=== PATIENT | female | born 1960 ===

== ENCOUNTER → 2024-07-15 | Outpatient (CLI) | payer OTHER ==
[2024-07-15 09:07] VITALS: BP 120/83; PULSE 96; RESP 16; TEMP 98
--- NOTE | 2024-07-15 09:57 | P.HPOB ---
History of Present Illness H&P Date: 07/15/24 Chief Complaint: The patient is here for her routine gynecologic exam and ma mmogram. This is a 63-year-old -0-0-1 with an LMP of 2011. The patient is here to establish with this office. It has been about 4 years since her last pelvic exam. Patient states she notices some vaginal fullness and feels swollen up when she is on her feet or after eating. She denies seeing anything protruding outside of the vaginal opening. She is otherwise without complaints and denies any postmenopausal bleeding. Review of Systems The patient's weight has been stable over the last year. She would like to lose weight. She denies respiratory, cardiac, or G.I. problems. 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 History of Any Multi-Drug Resistant Organisms: None Reported Additional Past Surgical History / Comment(s): SALPINGECTOMY FOR ECTOPIC PREG. Colonoscopy 2022(next after 7yr) Past Anesthesia/Blood Transfusion Reactions: Unable to Obtain Past Psychological History: Anxiety, Bipolar, Depression Smoking Status: Never smoker Past Alcohol Use History: None Reported Past Drug Use History: None Reported Additional History: She has been since 2015 and is not sexually active currently. 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 - Past Family History Mother Family Medical History: Cancer, Diabetes Mellitus, Liver Disease Additional Family Medical History / Comment(s): Fatty liver. Breast cancer. . Maternal and grandfather had diabetes. Father Family Medical History: Dementia, Diabetes Mellitus, Renal Disease Additional Family Medical History / Comment(s): . Paternal grandparents had diabetes Sister(s) Family Medical History: Cancer Additional Family Medical History / Comment(s): Breast cancer. Son(s) Additional Family Medical History / Comment(s): 2 sons from mucopolysaccharidosis. Medications and Allergies Home Medications Medication Instructions Recorded Confirmed Type Aspirin [[place] Aspirin EC] 81 mg PO DAILY 07/15/24 07/15/24 History Atorvastatin [Lipitor] 10 mg PO DAILY 07/15/24 07/15/24 History Cholecalciferol (Vitamin D3) 50 mcg PO DAILY 07/15/24 07/15/24 History [Vitamin D3 (50 Mcg = 2000 Iu)] Dulaglutide [Trulicity] 1 injection INJ WEEKLY 07/15/24 07/15/24 History Mv-Min/Folic/Vit K/Lut/Eoxh755 1 tab PO DAILY 07/15/24 07/15/24 History [Alive Women's 50 Plus Tablet] [place]-3/Dha/Epa/Fish Oil [Fish Oil 2,000 mg PO DAILY 07/15/24 07/15/24 History 1,000 mg Softgel] Pioglitazone [Actos] 15 mg PO DAILY 07/15/24 07/15/24 History Propranolol HCl 10 mg PO DIRECTED 07/15/24 07/15/24 History buPROPion XL [Wellbutrin XL] 300 mg PO DAILY 07/15/24 07/15/24 History busPIRone HCL 15 mg PO QID 07/15/24 07/15/24 History Allergies Allergy/AdvReac Type Severity Reaction Status Date / Time metformin Allergy Nausea & Unverified 07/15/24 08:53 Vomiting & Diarrhea Exam Vital Signs Temp Pulse Resp BP Pulse Ox 07/15/24 09:00 98 F 96 16 120/83 97 Intake and Output 07/14/24 07/15/24 07/15/24 22:59 06:59 14:59 Other: Weight 69.853 kg Height 5 feet 0 inches, weight 154 pounds, BMI 30.1. This is a well-developed well-nourished white female who is alert and oriented t imes 3 in no acute distress. HEENT: Within normal limits. NECK: Supple without mass or thyromegaly. CHEST AND LUNGS: Clear to auscultation. HEART: Regular rate and rhythm. BREASTS: Are without mass or discharge. AXILLARY EXAM: Negative for adenopathy. BACK: Negative for CVA tenderness. ABDOMEN: Soft, nontender, without palpable masses. PELVIC EXAM: Normal external genitalia with mild atrophy. Cervix and vagina appear normal with mild atrophy. The vaginal mucosa is without thickening or excoriation. There is no unusual discharge. There is a grade 2-3 cystocele and grade 2-3 uterine prolapse. There is a grade 2 rectocele. The uterus is midposition, nongravid size and nontender. There are no palpable adnexal masses or tenderness. RECTAL EXAM: Rectovaginal exam is negative for mass or tenderness and is negative for occult blood. EXTREMITIES: Nontender. IMPRESSION: 1. 63-year-old menopausal female with grade 2-3 cystocele, grade 2-3 uterine prolapse, and a grade 2 rectocele. This is intermittently symptomatic. PLAN: 1. Pap smear cotest was performed. 2. Self breast awareness was discussed with the patient. We have also discussed symptoms associated with inflammatory breast cancer. 3. Screening mammogram will be done today. 4. We have had a long discussion regarding vaginal prolapse. She would like a referral for possible surgical correction. We have discussed possible vaginal hysterectomy with anterior and posterior repairs. We have discussed possible risks including bleeding, infection, damage to surrounding structures as well as vaginal shortening. She will be referred to Dr. Elias for possible surgical correction. 5. Osteoporosis prevention was discussed. I have stressed the importance of adequate calcium, vitamin D and regular exercise. Recommended amounts of calcium and vitamin D were also discussed. Slip for a bone density test will be mailed to the patient's that she states she has never had this done before. 6. She was advised to return in one year for her annual well woman exam and as needed.
== END ==
LOC: WWCWWP 08:12
PROVIDERS: ATTEND Obstetrics & Gynecology
DX: Z01.419 Encounter for gynecological examination (general) (routine) without abnormal findings (principal); Z12.31 Encounter for screening mammogram for malignant neoplasm of breast; N81.3 Complete uterovaginal prolapse; Z88.8 Allergy status to other drugs, medicaments and biological substances
CPT/HCPCS: 77063; 77067

== ENCOUNTER 2025-02-28 14:32 | Emergency (ER) | payer OTHER ==
--- NOTE | 2025-02-28 15:36 | XR ---
EXAMINATION TYPE: XR ankle complete RT DATE OF EXAM: 02/28/2025 3:12 PM COMPARISON: None available. CLINICAL INDICATION: Female, 64 years old with history of Pain; PHH, pain TECHNIQUE: XR ankle complete RT; ankle is imaged in frontal, lateral and oblique projections. FINDINGS: There is no evidence of acute osseous pathology. No evidence of subluxation or dislocation. Kager's fat pad is intact. Metallic plate and fixation screws along the distal fibula. No periprosthetic luce ncy. Tibiotalar joint and talar dome are acutely unremarkable. Small enthesophyte along the plantar c alcaneal surface. IMPRESSION: No acute osseous abnormality. [facility], , 02/28/2025 3:34 PM
--- NOTE | 2025-02-28 16:16 | ED ---
Extremity Problem HPI - General Chief complaint: Extremity Problem,Nontraumatic Stated complaint: R Foot Issue Source: patient, RN notes reviewed, old records reviewed Mode of arrival: ambulatory Limitations: no limitations - History of Present Illness Initial comments: This is a 64-year-old female to the ER today. This patient presents today for evaluation in regards to right foot pain right foot swelling significant. History of right ankle injury no new or recurrent injuries. Swelling of the right leg painful when she walks worse when she walks and noted swelling today more swelling than normal around the ankle joint MD Complaint: extremity pain, extremity swelling, joint swelling (Right ankle), joint pain Location: right, lower extremity History of Same: Yes -: Yes myalgia, Yes arthralgia Radiation: proximal, distal Severity scale (1-10): 6 Quality: aching Consistency: constant Improves with: nothing Worsens with: weight bearing Associated Symptoms: denies other symptoms - Related Data Home Medications Medication Instructions Recorded Confirmed Aspirin [[place] Aspirin EC] 81 mg PO DAILY 07/15/24 07/15/24 Atorvastatin [Lipitor] 10 mg PO DAILY 07/15/24 07/15/24 Cholecalciferol (Vitamin D3) 50 mcg PO DAILY 07/15/24 07/15/24 [Vitamin D3 (50 Mcg = 2000 Iu)] Dulaglutide [Trulicity] 1 injection INJ WEEKLY 07/15/24 07/15/24 Mv-Min/Folic/Vit K/Lut/Ebtw999 1 tab PO DAILY 07/15/24 07/15/24 [Alive Women's 50 Plus Tablet] [place]-3/Dha/Epa/Fish Oil [Fish Oil 2,000 mg PO DAILY 07/15/24 07/15/24 1,000 mg Softgel] Pioglitazone [Actos] 15 mg PO DAILY 07/15/24 07/15/24 Propranolol HCl 10 mg PO DIRECTED 07/15/24 07/15/24 buPROPion XL [Wellbutrin XL] 300 mg PO DAILY 07/15/24 07/15/24 busPIRone HCL 15 mg PO QID 07/15/24 07/15/24 Allergies Allergy/AdvReac Type Severity Reaction Status Date / Time metformin Allergy Nausea & Unverified 02/28/25 14:48 Vomiting & Diarrhea Review of Systems ROS Statement: Those systems with pertinent positive or pertinent negative responses have been documented in the HPI. ROS Other: All systems not noted in ROS Statement are negative. Past Medical History Past Medical History: Diabetes Mellitus, Hyperlipidemia Additional Past Medical History / Comment(s): Type 2 diabetes. 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 History of Any Multi-Drug Resistant Organisms: None Reported Past Surgical History: Joint Replacement, Orthopedic Surgery Additional Past Surgical History / Comment(s): SALPINGECTOMY FOR ECTOPIC PREG. Colonoscopy 2022(next after 7yr) Past Anesthesia/Blood Transfusion Reactions: Unable to Obtain Past Psychological History: Anxiety, Bipolar, Depression Smoking Status: Never smoker Past Alcohol Use History: None Reported Past Drug Use History: None Reported - Past Family History Mother Family Medical History: Cancer, Diabetes Mellitus, Liver Disease Additional Family Medical History / Comment(s): Fatty liver. Breast cancer. . Maternal and grandfather had diabetes. Father Family Medical History: Dementia, Diabetes Mellitus, Renal Disease Additional Family Medical History / Comment(s): . Paternal grandparents had diabetes Sister(s) Family Medical History: Cancer Additional Family Medical History / Comment(s): Breast cancer. Son(s) Additional Family Medical History / Comment(s): 2 sons from mucopolysaccharidosis. General Exam Limitations: no limitations General appearance: alert, in no apparent distress Head exam: Present: atraumatic, normocephalic, normal inspection Eye exam: Present: normal appearance, PERRL, EOMI. Absent: scleral icterus, conjunctival injection, periorbital swelling ENT exam: Present: normal exam, mucous membranes moist Neck exam: Present: normal inspection. Absent: tenderness, meningismus, lymphadenopathy Respiratory exam: Present: normal lung sounds bilaterally. Absent: respiratory distress, wheezes, rales, rhonchi, stridor Cardiovascular Exam: Present: regular rate, normal rhythm, normal heart sounds. Absent: systolic murmur, diastolic murmur, rubs, gallop, clicks GI/Abdominal exam: Present: soft, normal bowel sounds. Absent: distended, tenderness, guarding, rebound, rigid Extremities exam: Present: normal inspection, full ROM, normal capillary refill. Absent: tenderness, pedal edema, joint swelling, calf tenderness Back exam: Present: normal inspection Neurological exam: Present: alert, oriented X3, CN II-XII intact Psychiatric exam: Present: normal affect, normal mood Skin exam: Present: warm, dry, intact, normal color. Absent: rash Course Vital Signs 02/28/25 14:45 Temperature 98.3 F Pulse Rate 88 Respiratory 20 Rate Blood Pressure 118/64 O2 Sat by Pulse 97 Oximetry - Reevaluation(s) Reevaluation #1: 02/28/25 17:39 Medical records reviewed Reevaluation #2: 02/28/25 17:39 Patient symptoms unchanged Reevaluation #3: 02/28/25 17:39 Patient informed of results and questions answered Reevaluation #4: Was pt. sent in by a medical professional or institution (, BRANDO, REACH TRUCK OPERATOR, urgent care, hospital, or snf...) When possible be specific @ -no Did you speak to anyone other than the patient for history (EMS, parent, family, police, friend...)? What history was obtained from this source @ -no Did you review nursing and triage notes (agree or disagree)? Why? @ -agree Are old charts reviewed (outside hosp., previous admission, EMS record, old EKG, old radiological studies, urgent care reports/EKG's, snf records)? Report findings @ -yes Differential Diagnosis (chest pain, altered mental status, abdominal pain women, abdominal pain men, vaginal bleeding, weakness, fever, dyspnea, syncope, headache, dizziness, GI bleed, back pain, seizure, CVA, palpatations, mental health, musculoskeletal)? @ -prior EKG interpreted by me (3pts min.). @ -yes X-rays interpreted by me (1pt min.). @ -yes negative for acute disease CT interpreted by me (1pt min.). @ -no U/S interpreted by me (1pt. min.). @ -no What testing was considered but not performed or refused? (CT, X-rays, U/S, labs)? Why? @ -none What meds were considered but not given or refused? Why? @ -none Did you discuss the management of the patient with other professionals (professionals i.e. BRANDO Mabry, REACH TRUCK OPERATOR, lab, RT, psych nurse, sexual assault social worker, stone engraver, teacher, deportation officer, bilingual patient support caseworker)? Give summary @ -no Was smoking cessation discussed for >3mins.? @ -no Was critical care preformed (if so, how long)? @ -no Were there social determinants of health that impacted care today? How? (Homelessness, low income, unemployed, alcoholism, drug addiction, transportation, low edu. Level, literacy, decrease access to med. care, care home, rehab)? @ -none Was there de-escalation of care discussed even if they declined (Discuss DNR or withdrawal of care, Hospice)? DNR status @ -no What co-morbidities impacted this encounter? (DM, HTN, Smoking, COPD, CAD, Cancer, CVA, ARF, Chemo, Hep., AIDS, mental health diagnosis, sleep apnea, morbid obesity)? @ -none Was patient admitted / discharged? Hospital course, mention meds given and route, prescriptions, significant lab abnormalities, going to OR and other pertinent info. @ - Undiagnosed new problem with uncertain prognosis? @ -no Drug Therapy requiring intensive monitoring for toxicity (Heparin, Nitro, Insulin, Cardizem)? @ -no Were any procedures done? @ -no Diagnosis/symptom? @ - Acute, or Chronic, or Acute on Chronic? @ -Acute Uncomplicated (without systemic symptoms) or Complicated (systemic symptoms)? @ -Complicated Side effects of treatment? @ -no Exacerbation, Progression, or Severe Exacerbation? @ -exacerbation Poses a threat to life or bodily function? How? (Chest pain, [place], NC, pneumonia, PE, COPD, DKA, ARF, appy, cholecystitis, CVA, Diverticulitis, Homicidal, Suicidal, threat to staff... and all critical care pts) @ -yes Medical Decision Making - Medical Decision Making 64 female with right lower extremity pain and swelling, x-ray negative for recurrent fracture, ultrasound negative for DVT, patient also wanted urinalysis which is negative for UTI patient can be discharged home - Lab Data Lab Results 02/28/25 Range/Units 16:23 Urine Color Colorless Urine Appearance Clear (Clear) Urine pH 5.5 (5.0-8.0) Ur Specific [place] 1.026 (1.001-1.035) Urine Protein Negative (Negative) Urine Glucose (UA) 4+ H (Negative) Urine Ketones Negative (Negative) Urine Blood Negative (Negative) Urine Nitrite Negative (Negative) Urine Bilirubin Negative (Negative) Urine Urobilinogen <2.0 (<2.0) mg/dL Ur Leukocyte Esterase Negative (Negative) - Radiology Data Radiology results: report reviewed (X-ray right lower extremity ultrasound right lower extremity negative for acute disease), image reviewed Disposition Clinical Impression: Leg edema, right Disposition: HOME SELF-CARE Condition: Good Instructions (If sedation given, give patient instructions): Leg Edema (ED) Referrals: Brenda Rg MD [Primary Care Provider] - 1-2 days Time of Disposition: 17:30
[2025-02-28 16:33] LABS: Bilirubin,Urine Negative (Negative); Blood,Urine Negative (Negative); Color,Urine Colorless; Glucose,Urine (UA) 4+ (Negative); Ketones,Urine Negative (Negative); Leukocyte Esterase,Urine Negative (Negative); Nitrite,Urine Negative (Negative); PH, Urine 5.5 (5.0-8.0); Protein,Urine Negative (Negative); Specific Gravity,Urine 1.026 (1.001-1.035); Urobilinogen,Urine <2.0 mg/dL (<2.0)
--- NOTE | 2025-02-28 17:28 | US ---
EXAMINATION TYPE: US venous doppler duplex LE RT DATE OF EXAM: 02/28/2025 4:56 PM COMPARISON: NONE CLINICAL INDICATION: Female, 64 years old with history of dvt; rt ankle pain/swelling, rt leg pain x 2 days on & off, no trauma/injury, no hx of dvt, no thinners, DM, slightly high blood pressure TECHNIQUE: The lower extremity deep venous system is examined utilizing real time linear array sonog moncho with graded compression, doppler sonography and color-flow sonography. Grayscale, color doppler , spectral doppler imaging performed of the deep veins of the lower extremities FINDINGS: SIDE PERFORMED: Right VESSELS IMAGED: Common Femoral Vein Deep Femoral Vein Greater Saphenous Vein * Femoral Vein Popliteal Vein Small Saphenous Vein * Proximal Calf Veins (* superficial vessels) Right Leg: appears negative for DVT; There is normal flow, compressibility, vascular waveforms. IMPRESSION: No evidence for deep vein thrombosis. [facility], , 02/28/2025 5:26 PM
[2025-02-28 17:52] VITALS: BP 140/80; PULSE 71; RESP 16; TEMP 98
== END 2025-02-28 17:52 | disposition home or self-care (01) ==
LOC: EC 14:32
DX: R60.0 Localized edema (principal); Z88.5 Allergy status to narcotic agent
CPT/HCPCS: 81003; 99284